=== PATIENT | female | born 1975 | race Caucasian/White ===

== ENCOUNTER → 2020-06-20 15:13 | Outpatient (CLI) | payer BC, SELFPAY ==
--- NOTE | ~2020-06-20 | US_ITS ---
EXAMINATION: US soft tissue head and neck INDICATION: Left posterior neck lump TECHNIQUE: High-resolution ultrasound was performed in the area of clinical interest. COMPARISON: None available FINDINGS: No suspicious cystic or solid sonographically detected mass is identified. Normal subcutane ous tissues are seen. IMPRESSION: 1. No sonographic correlate for the patient's left neck lump. Reviewed, dictated and finalized at location A.
== END ==
PROVIDERS: PCP Family Medicine; Visit Provider Nurse Practitioner Family
DX: R59.9 Enlarged lymph nodes, unspecified (principal)
CPT/HCPCS: 76536

== ENCOUNTER 2020-09-27 06:51 | Outpatient (NON) | payer BC, SELFPAY ==
[2020-09-27 22:40] LABS: SARS-CoV-2 RNA PCR Negative
== END 2020-09-27 06:52 ==
PROVIDERS: PCP Family Medicine; Visit Provider Family Medicine
DX: Z20.828 Contact with and (suspected) exposure to other viral communicable diseases (principal); R07.0 Pain in throat
CPT/HCPCS: 87635; C9803; U0003

== ENCOUNTER 2021-04-28 12:29 | Emergency (ER) | payer BC, SELFPAY ==
[2021-04-28 12:38] VITALS: BP 131/81; PULSE 89; RESP 16; TEMP 35.9; O2SAT 100
--- NOTE | 2021-04-28 13:11 | ED.FEMALEGU ---
HPI - Female Genitourinary General Chief complaint: Urogenital-Female Stated complaint: UTI Source: patient and RN notes reviewed Limitations: no limitations History of Present Illness HPI Narrative: The patient, on several medications, presents with urinary symptoms. Patient states she has a history of gastric bypass, kidney stones, UTIs. She now notes a shorter, couple day history of urinary frequency, urgency, dysuria associated with some visible hematuria. No fever, vomiting/diarrhea, abdominal pain, LBP; symptoms are mild worse with micturition, unlike prior kidney stone. Patient advised that she may have possible kidney stone [in view of visible hematuria], advised to go to hospital if not improved Related Data Home Medications Medication Instructions Recorded Confirmed blood sugar diagnostic #10 each 01/03/20 03/13/21 cyanocobalamin (vitamin B-12) 100 mcg SUB-Q MONTHLY 01/03/20 03/13/21 1,000 mcg/mL injection kit multivitamin 1 tablet PO DAILY 03/13/21 03/13/21 Allergies Allergy/AdvReac Type Severity Reaction Status Date / Time Cephalosporins Allergy Unknown Unknown Verified 07/21/20 10:31 latex Allergy Unknown Unknown Verified 07/21/20 10:31 Review of Systems Review of Systems: Narrative: General/Constitutional: No weight loss,fever Eyes: N0: Redness,discharge Ears/Nose/Throat: No: Epistaxis,ear discharge Respiratory: Denies: Hemoptysis Gastrointestinal: No Vomiting, Bleeding-rectal Skin: No Lumps, eruption Neurologic: No Focal Weakness,Sz Hematologic: Denies: Petechiae/Purpura Psychiatric: No: Suicida ideationl All Other Systems: Reviewed and Negative COUNT INCLUDES THE [facility] Past Medical History Medical History (Updated 04/28/21 @ 13:18 by Arya Lin MD) Type 2 diabetes mellitus with hyperglycemia Surgical History Surgical History (Updated 03/13/21 @ 09:55 by Melissa Eckert MD) H/O abdominoplasty H/O lithotripsy H/O mastectomy Family History Family History Father Cerebrovascular accident Patient's father is in good health Family history of malignant neoplasm of testis, Onset Age: 27 Mother Family history of diabetes mellitus in first degree relative Family history of malignant neoplasm of breast in first degree relative, Onset Age: 38 Family history of obesity Patient's mother is in good health Sibling Family history of malignant neoplasm of breast in first degree relative, Onset Age: 48 Family history of malignant neoplasm of testis Patient's sister is in good health Patient's brother is in good health Other Diabetes mellitus Family history of malignant neoplasm of breast Social History Social History Smoking status: Never smoker Alcohol intake: never Comments At time of signature, agree with nursing past medical, surgical, social and family history. There is no relevant family history pertinent to the presenting complaint Exam Narrative: Exam Narrative: General Appearance: Well appearing, No distress Conjunctiva clear Mouth/Throat: Normal appearing, Normal lips, Supple Respiratory: Airway patent, No respiratory distress Cardiovascular: RRR Abdomen: Soft, Non-tender, No massess, No organomegaly (no rebound/ surgical signs), Musculoskeletal: Full ROM Skin: Warm, Dry Neurological: A&O x3, CN II-X intact Psychiatric: Normal mood, Normal affect Course Vital Signs Vital signs: Vital Signs Temperature 96.7 F L 04/28/21 12:38 Pulse Rate 89 04/28/21 12:38 Respiratory Rate 16 04/28/21 12:38 Blood Pressure 131/81 04/28/21 12:38 Pulse Oximetry 100 04/28/21 12:38 Temperature 96.7 F L 04/28/21 12:38 Pulse Rate 89 04/28/21 12:38 Respiratory Rate 16 04/28/21 12:38 Blood Pressure 131/81 04/28/21 12:38 Pulse Oximetry 100 04/28/21 12:38 MDM - Female Genitourinary Lab Data Labs: Urine Glucose
== END 2021-04-28 13:59 | disposition home or self-care (01) ==
PROVIDERS: Emergency Provider Emergency Medicine; PCP Family Medicine
DX: N30.90 Cystitis, unspecified without hematuria (principal); E11.9 Type 2 diabetes mellitus without complications
CPT/HCPCS: 81003; 87086; 87186; 99213; G0463

== ENCOUNTER 2022-04-18 09:49 | Outpatient (CLI) | payer BC, SELFPAY ==
--- NOTE | ~2022-04-18 | XR_ITS ---
XR abdomen/kub 1V 04/18/2022 10:17 INDICATION: Left ureteral stone TECHNIQUE: KUB COMPARISON: None FINDINGS: Bowel gas pattern is normal. There is no evidence of free air, mass, organomegaly, ascites or obstruction. There are multiple bilateral pelvic calcifications which most likely represent phleb oliths, although distal ureteral stone is not excluded. There are extensive surgical changes overlyin g the lower abdomen and pelvis. There are left renal stones. There is a sclerotic lesion of the right pubis, likely a bone island. The bones appear intact. IMPRESSION: 1: Left nephrolithiasis. Multiple pelvic calcifications are likely phleboliths, although a distal ure teral stone is not excluded. Reviewed, dictated and finalized at location B. IMPRESSION: 1: Left nephrolithiasis. Multiple pelvic calcifications are likely phleboliths, although a distal ureteral stone is not excluded.
== END 2022-04-18 09:50 | disposition home or self-care (01) ==
LOC: ANHIMG 09:57
PROVIDERS: PCP Family Medicine; Visit Provider Nurse Practitioner Family
DX: N20.0 Calculus of kidney (principal)
CPT/HCPCS: 74018

== ENCOUNTER → 2023-01-17 10:10 | Outpatient (CLI) | payer BC, SELFPAY ==
--- NOTE | ~2023-01-17 | US_ITS ---
EXAMINATION: US retroperitoneal comp DATE: 01/17/2023 10:56 INDICATION: Left ureteral stone TECHNIQUE: Multiple ultrasound grayscale images of the kidneys were obtained. COMPARISON: None. FINDINGS: The right kidney measures 9.7 x 3.8 x 5.3 cm. The left kidney measures 10.0 x 4.5 x 4.7 cm. The kidne ys demonstrate normal echogenicity. 1.3 similar anechoic cyst at the upper pole of the right kidney. There is no hydronephrosis in either kidney. No stones identified. The bladder is normal. IMPRESSION: 1. 1.3 cm right renal cyst. Otherwise normal kidneys with no hydronephrosis. Reviewed, dictated and finalized at location A. ON [facility]ER
== END ==
PROVIDERS: PCP Family Medicine; Visit Provider Nurse Practitioner Family
DX: N28.1 Cyst of kidney, acquired (principal)
CPT/HCPCS: 76770

== ENCOUNTER → 2023-04-07 15:10 | Outpatient (CLI) | payer BC, SELFPAY ==
--- NOTE | ~2023-04-07 | US_ITS ---
EXAMINATION: US soft tissue chest INDICATION: Palpable lump of the right breast, history of bilateral mastectomy with implant reconstru ction for strong family history of breast cancer. TECHNIQUE: Limited right breast ultrasound is performed. COMPARISON: None available FINDINGS: There is a 9 mm x 3 mm oval, circumscribed, parallel, hypoechoic mass with no posterior fea tures or internal vascularity corresponding to the area of palpable concern at the 9:00 location, 15 cm from the nipple. There is a 4 mm cyst at the 9:00 location, 4 cm from the nipple. IMPRESSION: 1. Right breast mass corresponding to the area of palpable concern with differential including a lymp h node or possibly fat necrosis given its location and patient's surgical history. However, the mass is sonographically indeterminate and ultrasound-guided biopsy is recommended. BI-RADS category 4, suspicious findings. Reviewed, dictated and finalized at location A. IMPRESSION: 1. Right breast mass corresponding to the area of palpable concern with differe ntial including a lymph node or possibly fat necrosis given its location and pa esternt's surgical history. However, the mass is sonographically indeterminate an d ultrasound-guided biopsy is recommended. BI-RADS category 4, suspicious findings.
== END ==
PROVIDERS: PCP Physician Assistant; Visit Provider Physician Assistant
DX: N63.10 Unspecified lump in the right breast, unspecified quadrant (principal); N60.01 Solitary cyst of right breast
CPT/HCPCS: 76604

== ENCOUNTER 2023-04-24 12:40 | Outpatient (CLI) | payer BC, SELFPAY ==
--- NOTE | ~2023-04-24 | US_ITS ---
EXAMINATION: Consultation US INDICATION: Patient with history of bilateral mastectomy and implant reconstruction presents for biop sy of indeterminate right breast mass TECHNIQUE: Limited right breast ultrasound is performed. COMPARISON: 04/07/2023 FINDINGS: With real-time ultrasound, the right breast mass for biopsy has the appearance of a normal morphology lymph node of the right lateral chest wall. No suspicious cystic or solid mass is identifi ed. This was discussed with the patient and biopsy was canceled. IMPRESSION: 1. Findings consistent with a lymph node corresponding to the palpable abnormality of concern. Recomm end continued follow-up physical examination with repeat imaging if there is suspicious clinical almendarez ge. Reviewed, dictated and finalized at location A. IMPRESSION: 1. Findings consistent with a lymph node corresponding to the palpable abnormal ity of concern. Recommend continued follow-up physical examination with repeat imaging if there is suspicious clinical change.
== END 2023-04-24 12:41 | disposition home or self-care (01) ==
PROVIDERS: PCP Physician Assistant; Visit Provider Physician Assistant
DX: N63.10 Unspecified lump in the right breast, unspecified quadrant (principal); R92.8 Other abnormal and inconclusive findings on diagnostic imaging of breast
CPT/HCPCS: 99199

== ENCOUNTER 2023-09-30 12:03 | Emergency (ER) | payer BC, SELFPAY ==
[2023-09-30 12:13] VITALS: BP 130/67; PULSE 66; RESP 16; TEMP 36.3; O2SAT 98
--- NOTE | 2023-09-30 12:54 | ED.GENADULT ---
HPI - General Adult General Chief complaint: Skin/Abscess/Foreign Body Stated complaint: Anal Irritation Time Seen by Provider: 09/30/23 12:54 Source: patient Mode of arrival: ambulatory Limitations: no limitations History of Present Illness HPI narrative: 47-year-old female presented for complaint of rectal itching over the past 3 weeks. She states she has had no relief after using [id number] hemorrhoid cream use cream, and she takes daily antihistamine. She denies history of hemorrhoids and denies recent constipation. Denies hematochezia or melena. Denies concern for STD. Denies changes to soap, detergent, lotion, or any other exposures. No one else in the house or any contacts with similar symptoms. Related Data Allergies Allergy/AdvReac Type Severity Reaction Status Date / Time Cephalosporins Allergy Unknown Unknown Verified 09/30/23 12:14 latex Allergy Unknown Unknown Verified 09/30/23 12:14 Review of Systems Review of Systems: CONSTITUTIONAL: Denies body aches, fever, chills, or sweats. EYES: Denies visual changes, redness, or discharge. ENT: Denies rhinorrhea, congestion CARDIOVASCULAR: Denies chest pain, palpitations, or edema. RESPIRATORY: Denies cough or dyspnea. GASTROINTESTINAL: Denies abdominal pain, nausea, vomiting, or diarrhea. SKIN: Reports rectal itching MUSCULOSKELETAL: Denies back pain, joint pain, or myalgia. NEUROLOGIC: Denies headache, numbness, tingling, or weakness. [facility] Past Medical History Medical History Acute bilateral low back pain with bilateral sciatica Acute infective otitis externa of left ear Acute pharyngitis, unspecified (12/31/16) Acute sinusitis, unspecified Body mass index (BMI) 23 or greater (06/11/18) Body mass index (BMI) 35 or more (02/24/17) Cervicalgia [place] Cyst, thyroid Eczema Finger pain, right Hypothyroidism (acquired) Kidney stone Lower abdominal pain Morbid obesity due to excess calories Positive RAINER (antinuclear antibody) Seborrheic dermatitis of scalp Strain of left trapezius muscle Thyroid enlargement Tinea pedis of both feet Type 2 diabetes mellitus with hyperglycemia Type 2 diabetes mellitus without complications Surgical History Surgical History Gastric bypass status for obesity H/O abdominoplasty H/O lithotripsy H/O mastectomy Family History Family History Father Cerebrovascular accident Patient's father is in good health Family history of malignant neoplasm of testis, Onset Age: 27 Mother Family history of diabetes mellitus in first degree relative Family history of malignant neoplasm of breast in first degree relative, Onset Age: 38 Family history of obesity Patient's mother is in good health Sibling Family history of malignant neoplasm of breast in first degree relative, Onset Age: 48 Family history of malignant neoplasm of testis Patient's sister is in good health Patient's brother is in good health Other Diabetes mellitus Family history of malignant neoplasm of breast Social History Social History Smoking status: Never smoker Alcohol intake: never Substance use: never Comments At time of signature, I have reviewed and agree with nursing past medical, surgical, social and family history unless otherwise noted. Please see nursing chart for further information. There is no relevant family history pertinent to the presenting complaint Exam Narrative: GENERAL: Well-appearing HEAD: Normocephalic, atraumatic. EYES: conjunctivae clear, and EOMI. ENT: Mucous membranes moist. Oropharynx without edema, erythema or lesions. NECK: Supple. No lymphadenopathy CHEST: Clear to auscultation. HEART: Regular rate and rhythm. SKIN: Warm, dry. Rectal exam appears normal, no external hemo
== END 2023-09-30 13:21 | disposition home or self-care (01) ==
PROVIDERS: Emergency Provider Nurse Practitioner Family; PCP Family Medicine
DX: L29.0 Pruritus ani (principal); E03.9 Hypothyroidism, unspecified; E11.9 Type 2 diabetes mellitus without complications; Z98.84 Bariatric surgery status
CPT/HCPCS: 99213; G0463

== ENCOUNTER 2024-07-23 10:30 | Outpatient (CLI) | payer BC, SELFPAY ==
--- NOTE | ~2024-07-23 | US_ITS ---
US soft tissue chest 07/23/2024 11:12 Indication: Breast implants. Left breast masses. Streaky of bilateral mastectomy in 2018. No personal history of breast cancer. Strong family history of breast cancer. Patient being evaluated for implan t reduction seen. Procedure: High-resolution ultrasound of the chest wall bilaterally Comparison: Ultrasound dated 04/07/2023 Findings: Normal heterogeneous soft tissue in the right chest wall overlying the implant. No discrete mass. The re is elliptical hypoechoic soft tissue in the areas of palpable concern in the left breast just supe rficial to the breast implants located at 9, 12 and 4:00. Impression: 1: Oval elliptical hypoechoic soft tissue of the left breast at 9, 12 and 4:00 in the areas of palpab le concern, just superficial to the breast implant. Consider correlation with MRI of the breasts with contrast to assess for abnormal enhancement. Reviewed, dictated and finalized at location B. Impression: 1: Oval elliptical hypoechoic soft tissue of the left breast at 9, 12 and 4:00 in the areas of palpable concern, just superficial to the breast implant. Consi ursula correlation with MRI of the breasts with contrast to assess for abnormal en hancement.
== END 2024-07-23 10:31 ==
PROVIDERS: Visit Provider Obstetrics & Gynecology
DX: N63.20 Unspecified lump in the left breast, unspecified quadrant (principal); Z98.82 Breast implant status
CPT/HCPCS: 76604

== ENCOUNTER 2025-04-29 15:57 | Outpatient (CLI) | payer BC, SELFPAY ==
--- NOTE | ~2025-04-29 | US_ITS ---
US soft tissue head and neck 04/29/2025 16:17 Indication: Palpable area left posterior neck. Recent dermatitis injection in the area of concern. Procedure: High-resolution Limited soft tissue ultrasound of the left posterior neck Comparison: No prior studies for comparison. Findings: In the area of palpable concern there is a 7 mm cyst. No suspicious masses are identified. No abnormal lymphadenopathy. Impression: 1: Simple 7 mm cyst corresponds to the area of palpable concern in the left posterior neck. Reviewed, dictated and finalized at location A. Impression: 1: Simple 7 mm cyst corresponds to the area of palpable concern in the left pos terior neck.
== END 2025-04-29 15:58 | disposition home or self-care (01) ==
LOC: MICIMG 15:59
DX: R22.1 Localized swelling, mass and lump, neck (principal)
CPT/HCPCS: 76536

== ENCOUNTER 2025-05-06 13:31 | Outpatient (CLI) | payer BC, SELFPAY ==
--- NOTE | ~2025-05-06 | US_ITS ---
EXAMINATION: US soft tissue UE LT DATE: 05/06/2025 13:46 INDICATION: Localized swelling with palpable abnormality at the posterior left shoulder TECHNIQUE: Multiple ultrasound grayscale images of the region of concern posterior to the left should er were obtained. COMPARISON: None. FINDINGS/IMPRESSION: Nonspecific 1.3 x 1.3 x 0.3 cm lenticular hypoechoic lesion without evident internal vascular flow or surrounding hyperemia on color Doppler which is located in the deep subcutaneous fat at the region o f concern. There is a greater degree of difference between the lesion in the surrounding fat than typ ical for lipoma and differential would also include small lymph node or potentially a schwannoma/kalyn pheral nerve sheath tumor. Reviewed, dictated and finalized at location A.
== END 2025-05-06 13:32 | disposition home or self-care (01) ==
DX: R22.32 Localized swelling, mass and lump, left upper limb (principal)
CPT/HCPCS: 76882

== ENCOUNTER 2025-11-07 15:36 | Outpatient (CLI) | payer BC, SELFPAY ==
--- NOTE | ~2025-11-07 | US_ITS ---
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 Findings: Uterus: Uterus anteverted 8.1 x 4.3 x 4 cm, IUD appropriate location in the uterine cavity. Posterior uterine body fibroid 1.4 x 1.8 cm. . Right Ovary:Right ovary 3.1 x 1.6 x 2.1 cm, no adnexal mass, normal flow. Left Ovary: Left ovary 2.2 x 2.6 x 2 cm, no adnexal mass, normal flow. Free Fluid: None Impression: 1. IUD in appropriate location Reviewed, dictated and finalized at location P. 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 IUD in appropriate location
== END 2025-11-07 15:37 | disposition home or self-care (01) ==
LOC: MICIMG 15:38
DX: Z30.431 Encounter for routine checking of intrauterine contraceptive device (principal)
CPT/HCPCS: 76830